=== PATIENT | male | born 1960 | race Hispanic/Latino ===

== ENCOUNTER 2022-03-22 11:13 | Day surgery (SDC) | payer OTHER ==
[2022-03-22 11:35] VITALS: BP 122/62
[2022-03-22] MEDS ORDERED: 0.9%NACL 1000ML 1,000 ML IV ONE (11:59)
[2022-03-22] MEDS ORDERED: LIDOCAINE HCL 1% 20 ML VIAL ONE (14:49)
[2022-03-22] MEDS ORDERED: HEPARIN 1,000 UNIT VIAL ONE (14:49)
[2022-03-22 16:16] VITALS: BP 123/83
[2022-03-22 16:31] VITALS: BP 134/82
[2022-03-22 16:46] VITALS: BP 128/74
== END 2022-03-22 17:30 | disposition home or self-care (01) ==
LOC: DAH 11:13
PROVIDERS: ATTEND Internal Medicine Nephrology
DX: E11.22 Type 2 diabetes mellitus with diabetic chronic kidney disease (principal); N18.6 End stage renal disease; I50.21 Acute systolic (congestive) heart failure; I27.20 Pulmonary hypertension, unspecified; K70.30 Alcoholic cirrhosis of liver without ascites; I07.1 Rheumatic tricuspid insufficiency; H54.7 Unspecified visual loss; A41.89 Other specified sepsis; Z99.2 Dependence on renal dialysis; Z79.01 Long term (current) use of anticoagulants; Z79.899 Other long term (current) drug therapy
CPT/HCPCS: 36580; 77001; 82948 ×2; C1750; J7030; J1644 ×2; A4215; A4222; A4221; A4663; A4216; A4606; A4223 ×3